=== PATIENT | male | born 1960 | race African-American/Black ===

== ENCOUNTER 2022-01-13 16:55 | Emergency (ER) | payer MEDICAID ==
[~2022-01-13] VITALS: Ht 172.7 cm; Wt 77.0 kg
[2022-01-13] MEDS ORDERED: SODIUM CHLORIDE 0.9% 1,000 ML IV ONE (19:15)
[2022-01-13 19:32] LABS: HEMATOCRIT. 36.1 % (42.0-52.0); MEAN CORPUSCULAR HEMOGLOBIN 30.2 pg (28.0-32.0); MEAN CORPUSCULAR VOLUME 90.7 fL (80.0-94.0); MEAN PLATELET VOLUME 8.9 fl (7.4-10.4); PLATELET 253 x1000/uL (130-400); RED BLOOD CELL COUNT 3.98 mill/uL (4.7-6.1); RED CELL DISTRIBUTION WIDTH 12.6 % (11.6-14.6)
[2022-01-13 19:37] LABS: CHLORIDE 90 mEq/L (98-107)
[2022-01-13 19:47] LABS: ETHANOL BLOOD < 10 mg/dL
[2022-01-13] MEDS ORDERED: CEFTRIAXONE 1 G PREMIX 50 ML IV ONE (20:30)
[2022-01-13] MEDS ORDERED: AZITHROMYCIN 500MG/250ML 250 ML IV ONE (20:30)
[2022-01-13] MEDS ORDERED: SODIUM CHLORIDE 0.9% 1000ML BAG (SEPSIS BOLUS) IV ONE (20:30)
[2022-01-13 21:19] LABS: PLATELET ESTIMATE NORMAL
[2022-01-13 22:00] VITALS: BP 148/79
[2022-01-13] MEDS ORDERED: CEFTRIAXONE 1 G PREMIX 50 ML IV SCH (23:00)
== END 2022-01-14 01:26 | disposition short-term general hospital (02) ==
LOC: ER 16:55
DX: A41.9 Sepsis, unspecified organism (principal); E86.0 Dehydration; R62.7 Adult failure to thrive; M62.81 Muscle weakness (generalized); I10 Essential (primary) hypertension; E11.9 Type 2 diabetes mellitus without complications; E78.00 Pure hypercholesterolemia, unspecified; Z68.25 Body mass index [BMI] 25.0-25.9, adult
CPT/HCPCS: 36415; 70450; 71045; 80053; 80320; 83605; 83880; 84484; 85025; 87040; 87077; 87186; 93005; 96361; 96365; 96366; 96368; 99291; J0456; J0696; J7030; G0480